=== PATIENT | male | born 1990 | race Caucasian/White ===

== ENCOUNTER 2021-04-19 12:48 | Emergency (ER) | payer OTHER, SELFPAY ==
[2021-04-19 12:49] VITALS: BP 160/87; PULSE 76; RESP 16; TEMP 36.7; O2SAT 98; BMI 30.2
--- NOTE | 2021-04-19 13:09 | CT_ITS ---
PROCEDURE: CT HEAD/BRAIN WO CON CLINICAL INDICATION: headache COMPARISON: CT HEADWO CT head/brain wo con from 01/23/2019 TECHNIQUE: Axial images obtained. All CT scans at the facility use one or more dose reduction, viz: automated exposure control, ma/kV adjustment per patient size (including targeted exams where dose is matched to indication, i.e. head), or iterative reconstruction technique. FINDINGS: No midline shift, mass effect, intracranial hemorrhage, hydrocephalus, or extra-axial fluid collection is evident. The calvarium has an unremarkable appearance. No mastoid effusion. No sinus air-fluid level. IMPRESSION: No acute intracranial finding Dictated by: Hector Reyes MD 04/19/2021 13:51 Hector Reyes MD in [place] 04/19/2021 13:51
--- NOTE | 2021-04-19 13:15 | HMH.EDGENADL ---
ED Disposition Clinical Impression: Rebound headache Disposition: Home, Self-Care Condition on Discharge: Good Instructions: DI for Migraine Prescriptions: Butalb/Acetaminophen/Caffeine [Fiorcet Tablet] 1 each PO BID #10 tablet Transmission Status: Received by [id number] Referrals: Tea Cheema MD [Primary Care Provider] - - Critical Care Critical Care Time: No Attestation: On 04/19/21, the high probability of a clinically significant, sudden or life threatening deterioration of the following system(s) required my full and direct attention, intervention and personal management. The time I documented below is in addition to time spent performing reported procedures but includes the following listed in this critical care notation. Medical Decision Making - Medical Records Medical records reviewed: Yes: I reviewed the patient's medical records. - Carlos Alberto Inquiry Pt receiving controlled substance: No Vital Signs: 04/19/21 12:49 Temperature 98.0 F Temperature Source Oral Pulse Rate [Left Radial] 76 Respiratory Rate 16 Blood Pressure [Left Arm] 160/87 H Blood Pressure Mean [Left Arm] 111 Blood Pressure Source [Left Arm] Automatic Cuff Blood Pressure Position [Left Arm] Sitting 02 Sat by Pulse Oximetry 98 Oxygen Delivery Method Room Air - Lab Data Lab Results 04/19/21 13:18: WBC 6.8, RBC 5.38, Hgb 16.3, Hct 47.9, MCV 89.0, MCH 30.2, MCHC 34.0, RDW 13.1, Plt Count 244, MPV 7.8, Neut % (Auto) 60.4, Lymph % (Auto) 26.9, Kane % (Auto) 8.5, Eos % (Auto) 2.7, Baso % (Auto) 1.5, Neut # (Auto) 4.1, Lymph # (Auto) 1.8, Kane # (Auto) 0.6, Eos # (Auto) 0.2, Baso # (Auto) 0.1 04/19/21 13:18: Sodium 141, Potassium 4.4, Chloride 106, Carbon Dioxide 26, Anion Gap 13.4, BUN 14, Creatinine 0.90, Estimated Creat Clear 183, Estimated GFR 100, Est GFR ( Amer) 121, Glucose 107 H, Calcium 9.4, Total Bilirubin 1.6 H, AST 38, ALT 63, Alkaline Phosphatase 70, Total Protein 8.0, Albumin 5.1 H, Globulin 2.9, Albumin/Globulin Ratio 1.8 Result diagrams: 04/19/21 13:18 04/19/21 13:18 Orders (Tests/Meds): ED MEDICATIONS Generic Name Dose Route Start Last Admin Trade Name Freq PRN Reason Stop Dose Admin Sodium Chloride 1,000 mls @ 999 mls/hr 04/19/21 13:15 04/19/21 13:22 Sod Chlor 0.9% 1000ml Bag IV 04/19/21 14:15 999 mls/hr .[id number] NINA Administration Discontinued Medications Generic Name Dose Route Start Last Admin Trade Name Freq PRN Reason Stop Dose Admin Ketorolac Tromethamine 30 mg 04/19/21 13:09 04/19/21 13:22 Ketorolac 30mg/Ml Vial IV 04/19/21 13:10 30 mg ONCE ONE Administration - CT Data CT Scan: Head Time Received: 13:[address] Reviewed: Yes: I have reviewed the patient's CT results, I have viewed the radiologist's interpretation Preliminary Findings: Normal/NAD - Reevaluation(s) Time: 13:57 Reevaluation #1: On reevaluation, the patient's headache is much improved. Repeat neurologic exam is normal. Patient does not have any neuro deficits. I did instruct him on his caffeine cessation. Patient be discharged with short course analgesics. Patient given strict return precautions. Verbalized understanding. Medical Decision Narrative: 30-year-old male presented to the emergency department with headache for the last 15 days. I do believe this is likely secondary to the patient's abrupt cessation in caffeine. The patient was drinking a large amount of soda prior to this issue. Patient has normal neurologic exam. Work-up initiated. General Adult HPI - General Chief complaint: Headache Stated complaint: headache Time Seen by Provider: 04/19/21 13:00 Mode of Arrival: Ambulatory Limitations: No Limitations Description of Symptoms (Recalled from ER Triage Doc. by RN): Pt reports headaches for approx 15 days. Pt reports has had some n/v and some dizziness. Denies vision changes. Pt denies any trauma. Reports has been taking ibuprofen - History of
[2021-04-19 13:28] LABS: Basophils # 0.1 K/mm3 (0-0.2); Basophils % 1.5 % (0.1-2.0); Eosinophils # 0.2 K/mm3 (0.0-0.4); Eosinophils % 2.7 % (0.1-12.0); Hematocrit 47.9 % (42.0-52.0); Hemoglobin 16.3 g/dL (14.1-18.0); Lymphocytes # 1.8 K/mm3 (0.7-4.5); Lymphocytes % 26.9 % (10-50); Mean Corpuscular Hemoglobin 30.2 pg (27.0-31.2); Mean Platelet Volume 7.8 fl (7.4-10.4); Monocytes # 0.6 K/mm3 (0.1-1.0); Monocytes % 8.5 % (1.7-9.3); Neutrophils # 4.1 K/mm3 (1.8-7.8); Neutrophils % 60.4 % (37.0-80.0); Platelet Count 244 K/mm3 (142-424); Red Blood Count 5.38 M/mm3 (4.60-6.20); Red Cell Distribution Width 13.1 % (11.5-17.5); White Blood Count 6.8 K/mm3 (4.8-10.8)
[2021-04-19 13:33] LABS: Chloride 106 mmol/L (98-107)
[2021-04-19 13:34] LABS: Potassium 4.4 mmoL/L (3.5-5.1); Sodium 141 mmol/L (136-145)
[2021-04-19 13:36] LABS: Alanine Aminotransferase 63 U/L (12-78); Aspartate Amino Transferase 38 U/L (17-59); Blood Urea Nitrogen 14 mg/dl (9-20); Creatinine Clearance Estimated 183 mL/min (50-200); Estimated Glomerular Filt Rate 100 ml/min (>60); GFR (African American) 121 ML/MIN (>60)
[2021-04-19 13:37] LABS: Albumin Level 5.1 g/dl (3.5-5.0); Albumin/Globulin Ratio 1.8 (1.1-1.8); Alkaline Phosphatase 70 U/L (38-126); Anion Gap 13.4 mEq/L (5-15); Bilirubin,Total 1.6 mg/dl (0.2-1.3); Calcium 9.4 mg/dl (8.4-10.2); Carbon Dioxide 26 mmol/L (22.0-30.0); Globulin 2.9 g/dL (1.3-3.2); Glucose 107 mg/dl (74-100)
[2021-04-19 14:36] VITALS: BP 127/73; PULSE 67; RESP 18; TEMP 36.6; O2SAT 99
== END 2021-04-19 14:31 | disposition home or self-care (01) ==
PROVIDERS: Emergency Provider Emergency Medicine; PCP Family Medicine
DX: G44.40 Drug-induced headache, not elsewhere classified, not intractable (principal); Z88.0 Allergy status to penicillin; F17.210 Nicotine dependence, cigarettes, uncomplicated
CPT/HCPCS: 70450; 80053; 85025; 96365; 99282

== ENCOUNTER 2023-12-17 00:20 | Emergency (ER) | payer OTHER, SELFPAY ==
[2023-12-17] VITALS (7 sets, daily range): BP systolic 122–163; BP diastolic 65–101; PULSE 56–77; RESP 16–19; TEMP 36.7–36.9; O2SAT 97–99; BMI 32.1
--- NOTE | 2023-12-17 00:24 | ED_ITS ---
Discharge Plan Disposition Patient Disposition: Home, Self-Care Prescriptions Prescriptions: No Action [id number] 1 EACH tablet 1 each PO BID Qty: 10 0RF Referrals Follow up/Referrals: Tea Cheema MD [Primary Care Provider] - See instructions Activity Restrictions/Add. Instructions Additional Instructions/Restrictions: Your CT scan showed some thickening in the stomach which may be related to acute infection, or related to chronic inflammation. Recommend following up with your primary care provider for further assessment. Recommend starting an eusw-xon-wmengvd antacid pill such as Pepcid or omeprazole daily. Clinical Impressions Clinical Impression: Abdominal pain Instructions Patient Instructions: DI for Acute Abdominal Pain Discharge ED Provider: Bryn German General Adult HPI General Chief complaint: Abdominal Pain Stated complaint: Stomach pain with nausea Time Seen by Provider: 12/17/23 00:24 History of Present Illness HPI narrative: 33-year-old male presents with 3 days of worsening abdominal symptoms. He repor ts nausea and dry heaving but no significant vomiting. He reports mild diarrhea. He reports abdominal pain is spasming, comes and goes, predominantly in the right upper quadrant but also is generalized. He reports no history of abdominal surgery he reports no prior past medical problems. He denies any recent fevers or chills. Of note patient reports that he drinks a lot of alcohol on the weekends. Reports he drinks approximately 12 beers and 5 shots per day on the weekends, does not drink during the weekdays. Related Data Previous Rx's Medication Instructions Recorded yfaiwamkhk-evvkkbmxbqgmq-yvjxnhlg 1 each PO BID #10 tabs 04/19/21 50 mg-325 mg-40 mg tablet Allergies Allergy/AdvReac Type Severity Reaction Status Date / Time Penicillins [PENICILLINS] Allergy Mild Verified 01/23/19 00:22 [facility] Disclaimer: The information contained in this section may have been updated after the patient was seen, as this information can be updated by other users. Social History Smoking Status: Current every day smoker alcohol intake: current substance use type: marijuana current occupational status: unemployed Travel in the last 8 weeks: None ROS Obtained: Yes All systems reviewed & no additional complaints except as documented Physical Exam General General appearance: alert and in no apparent distress Head Head exam: atraumatic and normocephalic Eye Eye exam: Present normal appearance, PERRL and EOMI ENT ENT exam: Present normal oropharynx and normal external ear exam Neck Neck exam: Present normal inspection and full ROM Chest Chest inspection: Present normal inspection and symmetric chest wall rise; Absent tenderness Respiratory Respiratory exam: Present normal lung sounds bilaterally; Absent respiratory distress Cardiovascular Cardiovascular exam: Present regular rate and normal rhythm Abdominal Exam Abdominal exam: Present soft; Absent distention, tenderness or guarding Extremities Exam Extremities exam: Present normal inspection; Absent edema or joint swelling Back Exam Back exam: Present normal inspection; Absent tenderness Neurological Exam Neurological exam: Present alert and oriented X3; Absent motor sensory deficit Psychiatric Psychiatric exam: Present normal affect and normal mood Skin Skin exam: Present warm, dry and normal color Lymphatic Lymphatic Findings: no adenopathy Medical Decision Making Medical Records Medical records reviewed: Yes I reviewed the patient's medical records. Carlos Alberto Inquiry Pt receiving controlled substance: No Carlos Alberto was queried for this patient: No Vital Signs: 12/17/23 00:22 12/17/23 00:28 12/17/23 00:30 Temperature 98.4 F Temperature Source Oral Pulse Rate 74 65 Pulse Rate [Right] 69 Respiratory Rate 16 Blood Pressure 160/101 H 163/88 H Blood Pressure [Right Arm] 130/79 Blood Pressure Mean [Right Arm] 96 Blood Pressure Source [Right Arm] Automatic Cuff Blood Pressure Position [Right Arm] Sitting 02 Sat by Pulse Oximetry 99 98 98 Oxygen Delivery Method Room Air 12/17/23 00:40 12/17/23 00:50 12/17/23 01:10 Temperature Temperature Source Pulse Rate 58 L 57 L 56 L Pulse Rate [Right] Respiratory Rate Blood Pressure 130/79 125/75 122/78 Blood Pressure [Right Arm] Blood Pressure Mean [Right Arm] Blood Pressure Source [Right Arm] Blood Pressure Position [Right Arm] 02 Sat by Pulse Oximetry 98 97 97 Oxygen Delivery Method Lab Data Lab results reviewed: Yes I reviewed the patient's lab results. Lab Results 12/17/23 00:35: WBC 7.7, RBC 5.62, Hgb 17.4, Hct 51.6, MCV 91.8, MCH 31.0, MCHC 33.7, RDW 13.2, Plt Count 229, MPV 8.4, Neut % (Auto) 59.1, Lymph % (Auto) 31.1, Potter % (Auto) 6.2, Eos % (Auto) 2.0, Baso % (Auto) 1.5, Neut # (Auto) 4.5, Lymph # (Auto) 2.4, Potter # (Auto) 0.5, Eos # (Auto) 0.2, Baso # (Auto) 0.1, Sodium 138, Potassium 3.7, Chloride 103, Carbon Dioxide 24, Anion Gap 14.7, BUN 13, Creatinine 0.90, Estimated Creat Clear 189, Estimated GFR 98, Est GFR ( Amer) 118, Glucose 103 H, Calcium 9.0, Total Bilirubin 1.1, AST 38, ALT 53, Alkaline Phosphatase 63, Total Protein 7.4, Albumin 4.5, Globulin 2.9, Albumin/Globulin Ratio 1.6, Lipase 51 12/17/23 00:35 12/17/23 00:35 Orders (Tests/Meds): ED MEDICATIONS Generic Name Dose Route Start Last Admin Trade Name Freq PRN Reason Stop Dose Admin Sodium Chloride 10 ml 12/17/23 01:02 12/17/23 01:03 Sodium Chloride 0.9% 10ml Syr (Rad Only) IV 01/16/24 01:01 10 ml NEEDED PRN Administration Maintain IV Site Discontinued Medications Generic Name Dose Route Start Last Admin Trade Name Freq PRN Reason Stop Dose Admin Acetaminophen 1,000 mg 12/17/23 00:31 12/17/23 00:54 Acetaminophen 500mg Tab PO 12/17/23 00:32 1,000 mg ONCE ONE Administration Belladonna Alkaloids 60 ml 12/17/23 00:31 12/17/23 00:54 Belladonna Alkaloids 60 Ml Ml PO 12/17/23 00:32 60 ml ONCE ONE Administration Iopamidol 75 ml 12/17/23 01:02 12/17/23 01:03 Iopamidol-370 (76%);100ml Bottle IV 12/17/23 01:03 75 ml ONCE ONE Administration Ketorolac Tromethamine 30 mg 12/17/23 00:31 12/17/23 00:54 Ketorolac 30mg/Ml Vial IV 12/17/23 00:32 30 mg ONCE ONE Administration Ondansetron HCl 4 mg 12/17/23 00:31 12/17/23 00:54 Ondansetron 4mg/2ml Vial IV 12/17/23 00:32 4 mg ONCE ONE Administration ORDERS Category Date Time Status CT abdomen pelvis w con Stat Cat Scan 12/17/23 00:31 Completed CBC w/Auto Diff [Complete Blood Count Auto Diff] Stat Lab 12/17/23 00:35 Completed CMP [Comprehensive Metabolic Panel] Stat Lab 12/17/23 00:35 Completed Lipase Stat Lab 12/17/23 00:35 Completed Medical Decision Narrative: 33-year-old male with history of binge drinking presents with 3 days of multiple abdominal complaints. History was obtained via conversation with patient. On a rrival, patient is [afebrile, hemodynamically stable, satting appropriately, alert, oriented x4, GCS 15], moving all extremities spontaneously. Full physical exam performed and significant for soft abdomen with minimal right upper quadrant tenderness. Differential includes but is not limited to gastroenteritis, cholecystitis, symptomatic cholelithiasis, pancreatitis, GERD,. Patient was given Tylenol, Toradol, Zofran GI cocktail for symptomatic management and correction of underlying abnormalities. Workup initiated including CBC CMP lipase CT abdomen pelvis with IV contrast. On re-evaluation, patient [remains afebrile, HD stable.] Laboratory workup independently interpreted by me and significant for negative lipase, normal LFTs, no leukocytosis. Imaging independently interpreted by me and significant for mildly thickened gastric antrum. And fluid-filled proximal small bowel, normal-appearing pancreas, gallbladder, no evidence of obstruction.. See radiology read for full review of final results. Given patient history, exam and workup, patient's presentation most likely repr esents gastritis, may be related to an acute GI infection, chronic alcohol use, H. pylori etc. No emergent pathology noted on workup. Patient discharged with instructions to begin taking antacid medications and follow up with PCP. Patient discharged in stable condition. Procedures Risk/Benefits of Procedure(s) Were Explained: Yes Critical Care Critical Care Time Critical Care Time: No
--- NOTE | 2023-12-17 00:27 | PC.NURSE ---
in room with US
--- NOTE | 2023-12-17 00:31 | CT_ITS ---
PROCEDURE INFORMATION: Exam: CT Abdomen And Pelvis With Contrast Exam date and time: 12/17/2023 12:58 AM Age: 33 years old Clinical indication: Abdominal pain; Additional info: Ruq/generalized abd pain TECHNIQUE: Imaging protocol: Computed tomography of the abdomen and pelvis with contrast. Radiation optimization: All CT scans at this facility use at least one of these dose optimization techniques: automated exposure control; mA and/or kV adjustment per patient size (includes targeted exams where dose is matched to clinical indication); or iterative reconstruction. Contrast material: ISOVUE; Contrast volume: 75 ml; Contrast route: IV; COMPARISON: 1. ABDPELW/O CT ABD PELVIS W/O CONTRAST 05/21/2017 6:58 AM 2. CR CXR CHEST(2 VIEWS-NOT PORTABLE) 05/21/2017 6:49 AM FINDINGS: Lungs: There are areas of subpleural reticulation throughout the visualized lungs which are nonspecific. Liver: There is possible hepatic steatosis, evaluation is limited secondary to contrast enhancement. Gallbladder and bile ducts: Normal. Pancreas: Normal. Spleen: There are multiple calcifications in the spleen most likely reflects small granulomas. Adrenal glands: The adrenal glands appear normal. Kidneys and ureters: There are no soft tissue renal masses or hydronephrosis. Stomach and bowel: There are scattered colonic diverticula without evidence for active diverticulitis. There is moderate edema of the gastric antrum with mucosal hyperenhancement, findings could reflect gastritis. Appendix: No evidence of appendicitis. Intraperitoneal space: Unremarkable. Vasculature: The abdominal aorta and its major branches appear normal without evidence of aneurysm or stenosis. There are pelvic phleboliths. Lymph nodes: No lymphadenopathy. Urinary bladder: There is moderate distention of the urinary bladder. Reproductive: Unremarkable. Bones/joints: The visualized osseous structures of the abdomen and pelvis appear normal for patient age. Soft tissues: Unremarkable. IMPRESSION: There is moderate edema of the gastric antrum with mucosal hyperenhancement, findings could reflect gastritis.
[2023-12-17 00:47] LABS: Basophils # 0.1 K/mm3 (0-0.2); Basophils % 1.5 % (0.1-2.0); Eosinophils # 0.2 K/mm3 (0.0-0.4); Hematocrit 51.6 % (42.0-52.0); Hemoglobin 17.4 g/dL (14.1-18.0); Lymphocytes # 2.4 K/mm3 (0.7-4.5); Lymphocytes % 31.1 % (10-50); Mean Corpuscular HGB Conc 33.7 g/dL (31.8-35.4); Mean Corpuscular Volume 91.8 fl (80-94); Mean Platelet Volume 8.4 fl (7.4-10.4); Monocytes # 0.5 K/mm3 (0.1-1.0); Monocytes % 6.2 % (1.7-9.3); Neutrophils # 4.5 K/mm3 (1.8-7.8); Neutrophils % 59.1 % (37.0-80.0); Platelet Count 229 K/mm3 (142-424); Red Blood Count 5.62 M/mm3 (4.60-6.20); Red Cell Distribution Width 13.2 % (11.5-17.5); White Blood Count 7.7 K/mm3 (4.8-10.8)
[2023-12-17 00:52] LABS: Alanine Aminotransferase 53 U/L (12-78); Albumin Level 4.5 g/dl (3.5-5.0); Albumin/Globulin Ratio 1.6 (1.1-1.8); Alkaline Phosphatase 63 U/L (38-126); Anion Gap 14.7 mEq/L (5-15); Aspartate Amino Transferase 38 U/L (17-59); Bilirubin,Total 1.1 mg/dl (0.2-1.3); Blood Urea Nitrogen 13 mg/dl (9-20); Carbon Dioxide 24 mmol/L (22.0-30.0); Chloride 103 mmol/L (98-107); Creatinine Clearance Estimated 189 mL/min (50-200); Estimated Glomerular Filt Rate 98 ml/min (>60); GFR (African American) 118 ML/MIN (>60); Globulin 2.9 g/dL (1.3-3.2); Glucose 103 mg/dl (74-100); Lipase 51 U/L (23-300); Potassium 3.7 mmoL/L (3.5-5.1); Sodium 138 mmol/L (136-145); Total Protein,Serum 7.4 g/dl (6.3-8.2)
[2023-12-17] MEDS: ONDANSETRON 4MG/2ML VIAL 4 MG IV (00:54)
[2023-12-17] MEDS: ACETAMINOPHEN 500MG TAB 1000 MG PO (00:54)
[2023-12-17] MEDS: KETOROLAC 30MG/ML VIAL 30 MG IV (00:54)
[2023-12-17] MEDS: BELLADONNA ALKALOIDS 60 ML ML PO (00:54)
[2023-12-17] MEDS: IOPAMIDOL-370 (76%);100ML BOTTLE 75 ML IV (01:03)
[2023-12-17] MEDS: SODIUM CHLORIDE 0.9% 10ML SYR (RAD ONLY) 10 ML IV (01:03)
--- NOTE | 2023-12-17 01:04 | PC.NURSE ---
rounded on patient, no needs voiced at this time.
== END 2023-12-17 01:29 | disposition home or self-care (01) ==
PROVIDERS: Emergency Provider Emergency Medicine; PCP Family Medicine
DX: R10.11 Right upper quadrant pain (principal); R10.84 Generalized abdominal pain; R11.0 Nausea; R19.7 Diarrhea, unspecified; F17.200 Nicotine dependence, unspecified, uncomplicated
CPT/HCPCS: 74177; 80053; 83690; 85025; 96374; 96375; 99285; J2405; Q9967

== ENCOUNTER 2024-04-11 00:18 | Emergency (ER) | payer OTHER, SELFPAY ==
[2024-04-11 00:19] VITALS: BP 128/80; PULSE 80; RESP 18; TEMP 37; O2SAT 95; BMI 32.1
[2024-04-11 00:30] VITALS: BMI 23.7
[2024-04-11] MEDS: ONDANSETRON 4MG ODT 4 MG SL (00:33)
--- NOTE | 2024-04-11 00:36 | XR_ITS ---
PROCEDURE INFORMATION: Exam: XR Right Foot Exam date and time: 04/11/2024 12:34 AM Age: 33 years old Clinical indication: Injury or trauma; Other: Cardiology Rn injury; Laceration; Foot; Right; Foreign body involvement not specified; Additional info: cork grinder vs R 1st metatarsal region TECHNIQUE: Imaging protocol: Radiologic exam of the right foot. Views: 3 or more views. COMPARISON: No relevant prior studies available. FINDINGS: Bones/joints: The foot is normally aligned. No acute osseous abnormality. No significant degenerative changes. Soft tissues: There is a soft tissue defect overlying the distal 1st metatarsal on the oblique view. IMPRESSION: 1. No acute osseous abnormality. 2. Soft tissue defect overlying the dorsal distal 1st metatarsal. No foreign body is evident.
[2024-04-11] MEDS: ACETAMINOPHEN 500MG TAB 1000 MG PO (00:47)
[2024-04-11] MEDS: LACTATED RINGERS 1000ML 1,000 ML 999 ML IV (00:47)
[2024-04-11] MEDS: KETOROLAC 30MG/ML VIAL 15 MG IV (00:48)
[2024-04-11] MEDS: CEFAZOLIN SODIUM 2 GM in 0.9 % SODIUM CHLORIDE 100 ML IV (00:50)
[2024-04-11 01:00] VITALS: BP 119/62; PULSE 54; O2SAT 98
--- NOTE | 2024-04-11 01:01 | HMH.EDGENADL ---
Discharge Plan Disposition Patient Disposition: Home, Self-Care Condition: Good Prescriptions Prescriptions: New cephalexin 500 mg capsule 500 mg PO TID 5 Days Qty: 15 0RF No Action srztujpohq-rcxrtlohcdehl-jjib 1 EACH tablet 1 each PO BID Qty: 10 0RF Referrals Follow up/Referrals: Tea Cheema MD [Primary Care Provider] - See instructions Virginia Vidal DPM [Staff Physician] - See instructions Activity Restrictions/Add. Instructions Additional Instructions/Restrictions: You were evaluated in the emergency department today. Please keep your wound clean and dry. Do not submerge under any water. Keep covered with antibiotic ointment and a dressing or Band-Aid when you wear shoes to help protect it and prevent infection. Monitor for any signs of infection, such as redness, warmth, or pus draining from the wound. Return to the emergency department right away should any of these develop. estimator and drafter supervisor the prescription for antibiotics and take the full course as prescribed to prevent infection. I provided you with information for Dr. Vidal with podiatry if you have any issues or concerns or wish to follow-up for wound check. Your sutures will need to be removed in approximately 8 to 10 days. Clinical Impressions Clinical Impression: Laceration of dorsum of right foot Instructions Patient Instructions: DI for Laceration Repair Discharge ED Provider: Juliet Mixon General Adult HPI General Chief complaint: Wound/Laceration Stated complaint: AO 2330 right foot laceration Time Seen by Provider: 04/11/24 00:21 Mode of Arrival: Ambulatory Source of Information: Patient Limitations: No Limitations Description of Symptoms (Recalled from ER Triage Doc. by RN): Patient reports he was working on his motorcycle at approximately midnight and using a convex grinder operator while wearing croc shoes and the convex grinder operator slipped hitting his left foot. Patient reports large amount of bleeding and arrives to triage with a towel taped tightly to foot. Patient is ambulatory. Reports that he feels hot, diaphoretic and nauseated. History of Present Illness HPI narrative: This patient is a 33-year-old male who denies significant past medical history presenting to the emergency department for evaluation with concern for right foot injury. 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 He states he had a large amount of bleeding, so he wrapped it in a towel prior to arrival. He is unsure when his last tetanus shot was. No other injuries or concerns noted. He was ambulatory into the emergency department. He also states that he started to feel very hot, nauseated, and lightheaded. Related Data Previous Rx's Medication Instructions Recorded upagdmtdbu-rwshjlffxabki-rllssjmw 1 each PO BID #10 tabs 04/19/21 50 mg-325 mg-40 mg tablet cephalexin 500 mg capsule 500 mg PO TID 5 days #15 caps 04/11/24 Allergies Allergy/AdvReac Type Severity Reaction Status Date / Time Penicillins [PENICILLINS] Allergy Mild Verified 01/23/19 00:22 [facility] Disclaimer: The information contained in this section may have been updated after the patient was seen, as this information can be updated by other users. Social History Smoking Status: Current every day smoker alcohol intake: current alcohol intake frequency: 3 or more drinks per day substance use type: marijuana current occupational status: unemployed Travel in the last 8 weeks: None ROS Obtained: Yes All systems reviewed & no additional complaints except as documented Physical Exam General General appearance: alert, in no apparent distress and anxious Comment: Diaphoretic, anxious appearing Head Head exam: atraumatic and normocephalic Eye Eye exam: Present normal appearance, PERRL and EOMI ENT ENT exam: Present normal exam, normal oropharynx, mucous membranes moist and normal external ear exam Neck Neck exam: Present normal inspection, full ROM and trachea midline; Absent tenderness Chest Chest inspection: Present normal inspection and symmetric chest wall rise; Absent tenderness Respiratory Respiratory exam: Present normal lung sounds bilaterally; Absent respiratory distress, wheezes, stridor or accessory muscle use Cardiovascular Cardiovascular exam: Present regular rate and normal rhythm Abdominal Exam Abdominal exam: Present soft; Absent distention, tenderness or guarding Extremities Exam Extremities exam: Present full ROM, normal capillary refill and other; Absent tenderness or edema Expanded Lower Extremity Exam Right: Top foot image: 1. 4 cm linear laceration. Wound is hemostatic. No gross contamination. Neurovascularly intact distally. Back Exam Back exam: Present normal inspection and full ROM; Absent tenderness Neurological Exam Neurological exam: Present alert, oriented X3, CN II-XII intact and normal gait; Absent motor sensory deficit Psychiatric Psychiatric exam: Present normal affect and normal mood Skin Skin exam: Present warm and diaphoresis Medical Decision Making Medical Records Medical records reviewed: Yes I reviewed the patient's medical records. Carlos Alberto Inquiry Pt receiving controlled substance: No Vital Signs: 04/11/24 00:19 Temperature 98.6 F Temperature Source Oral Pulse Rate [Left Radial] 80 Respiratory Rate 18 Blood Pressure [Right Arm] 128/80 Blood Pressure Mean [Right Arm] 96 Blood Pressure Source [Right Arm] Automatic Cuff Blood Pressure Position [Right Arm] Sitting 02 Sat by Pulse Oximetry 95 Oxygen Delivery Method Room Air Lab Data Lab results reviewed: Yes I reviewed the patient's lab results. Orders (Tests/Meds): ED MEDICATIONS Generic Name Dose Route Start Last Admin Trade Name Freq PRN Reason Stop Dose Admin Lactated Ringer's 1,000 mls @ 999 mls/hr 04/11/24 00:36 04/11/24 00:47 Lactated Ringer's 1000 Ml Bag IV 04/11/24 01:36 999 mls/hr .Q1H1M ONE Administration Discontinued Medications Generic Name Dose Route Start Last Admin Trade Name Freq PRN Reason Stop Dose Admin Acetaminophen 1,000 mg 04/11/24 00:36 04/11/24 00:47 Acetaminophen 500mg Tab PO 04/11/24 00:37 1,000 mg ONCE ONE Administration Bacitracin 1 gm 04/11/24 01:23 Bacitracin Zinc Oint 30gm Tube TP 04/11/24 01:24 ONCE ONE Cefazolin Sodium 2 gm 04/11/24 00:36 04/11/24 00:47 Cefazolin 2gm Vial IV 04/11/24 00:37 Not Given ONCE ONE Cefazolin Sodium 2 gm/ Sodium 100 mls @ 200 mls/hr 04/11/24 00:49 04/11/24 00:50 Chloride IV 04/11/24 01:18 200 mls/hr ONCE ONE Administration Ketorolac Tromethamine 15 mg 04/11/24 00:36 04/11/24 00:48 Ketorolac 30mg/Ml Vial IV 04/11/24 00:37 15 mg ONCE ONE Administration Lidocaine HCl 20 ml 04/11/24 01:07 Lidocaine 1% 20ml Mdv IJ 04/11/24 01:08 ONCE ONE Ondansetron HCl 4 mg 04/11/24 00:30 04/11/24 00:33 Ondansetron 4mg Odt SL 04/11/24 00:31 4 mg ONCE ONE Administration ORDERS Category Date Time Status Foot XR right minimum 3 views [XR foot RT min 3V] Stat Exams 04/11/24 00:36 Completed Medical Decision Narrative: In summary, this patient is a 33-year-old male presenting to the Emergency Department for evaluation of laceration to his right foot after hitting it with a sheet metal worker maintenance. Differential diagnoses considered include but are not limited to laceration, abrasion, open fracture, neurovascular injury, tendon injury. Ruling out the most morbid conditions drove assessment. It should be noted patient's history includes tobacco use which is not at goal therapy. This complicates all aspects of care by increasing patient's risk for morbidity. On exam, the patient is anxious appearing, diaphoretic, and pale. I feel that he likely is having this response to seeing his own blood/his injury. Workup included x-rays of the right foot. He was given a bolus of IV fluids as well as IV Toradol, oral Tylenol, and oral Zofran for symptomatic improvement. Given the wound, he was given Tdap booster as well as IV Ancef as well. I independently interpreted x-ray prior to the radiologist read and noted no obvious acute fracture or foreign body. Please see their read for final interpretation. With negative x-ray and reassuring exam with no neurovascular or tendon issues, I feel the patient is appropriate for simple laceration repair at bedside. He consented after risk versus benefit was explained. Laceration was repaired without difficulty. Please see procedure note for further documentation. He remained neurovascularly intact afterward. His wound was covered with bacitracin and then a sterile dressing. He was given instructions for wound care, instructions for close SUPPLY TECHNICIAN follow-up, and strict return precautions. He was given prescription for Keflex for antibiotic prophylaxis. Patient was discharged after all questions were answered. Procedures Risk/Benefits of Procedure(s) Were Explained: Yes Laceration Laceration 1: Site: foot Side (If applicable): right Size (cm): 4 Description: linear Depth: simple, single layer Local Anesthetic: lidocaine 1% Amount of anesthesia used (mL): 5 Pre-repair: wound explored, irrigated extensively and deep structures intact Skin layer closed with: nylon (Ethilon) Size (cm): 3-0 Number of sutures: 3 Technique: simple, interrupted Critical Care Critical Care Time Critical Care Time: No
[2024-04-11 01:30] VITALS: BP 132/60; PULSE 52; O2SAT 99
[2024-04-11] MEDS: BACITRACIN ZINC OINT 30GM TUBE TP (01:33)
[2024-04-11] MEDS: LIDOCAINE 1% 20ML MDV 20 ML IJ (01:33)
[2024-04-11 01:34] VITALS: BP 132/60; PULSE 56; RESP 18; TEMP 36.7; O2SAT 99
== END 2024-04-11 01:37 | disposition home or self-care (01) ==
PROVIDERS: Emergency Provider Emergency Medicine; PCP Family Medicine
DX: S91.311A Laceration without foreign body, right foot, initial encounter (principal); R11.0 Nausea; R42 Dizziness and giddiness; W31.1XXA Contact with metalworking machines, initial encounter
CPT/HCPCS: 12002; 73630; 96365; 96375; 99284; J7120

== ENCOUNTER 2024-04-27 03:59 | Emergency (ER) | payer OTHER, SELFPAY ==
[2024-04-27 04:02] VITALS: BP 142/72; PULSE 65; RESP 15; TEMP 36.8; O2SAT 97
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
--- NOTE | 2024-04-27 04:13 | XR_ITS ---
PROCEDURE INFORMATION: Exam: XR Right Foot Exam date and time: 04/27/2024 4:13 AM Age: 33 years old Clinical indication: Pain; Foot; Right; Additional info: Arch, medial foot pain TECHNIQUE: Imaging protocol: Radiologic exam of the right foot. Views: 3 or more views. COMPARISON: CR XR FOOT RT MIN 3V 04/11/2024 12:34 AM FINDINGS: Bones/joints: Os peroneus. Bipartite medial sesamoid bone. Soft tissues: Unremarkable. IMPRESSION: No acute or aggressive osseous abnormality.
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
[2024-04-27 04:24] VITALS: BMI 32.1
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
--- NOTE | 2024-04-27 04:29 | PC.NURSE ---
pt in xray
[2024-04-27 04:30] VITALS: BP 111/57; PULSE 60; RESP 21; O2SAT 97
[2024-04-27] MEDS: IBUPROFEN 600 MG TABLET PO (04:34)
[2024-04-27] MEDS: OXYCODONE 5MG IMMEDIATE RELEASE TABLET 5 MG PO (04:34)
[2024-04-27] MEDS: ACETAMINOPHEN 500MG TAB 1000 MG PO (04:34)
[2024-04-27 05:17] VITALS: BP 112/67; PULSE 62; RESP 14; TEMP 36.6
== END 2024-04-27 05:19 | disposition home or self-care (01) ==
PROVIDERS: Emergency Provider Emergency Medicine; PCP Family Medicine
DX: M79.604 Pain in right leg (principal); M79.671 Pain in right foot; M25.571 Pain in right ankle and joints of right foot; F17.210 Nicotine dependence, cigarettes, uncomplicated; V28.49XA Other motorcycle driver injured in noncollision transport accident in traffic accident, initial encounter; Y92.410 Unspecified street and highway as the place of occurrence of the external cause
CPT/HCPCS: 73552; 73562; 73590; 73610; 73630; 99284

== ENCOUNTER 2024-09-05 20:22 | Emergency (ER) | payer OTHER, SELFPAY ==
[2024-09-05 20:23] VITALS: BP 119/70; PULSE 63; RESP 20; TEMP 36.9; O2SAT 96; BMI 33.3
--- NOTE | 2024-09-05 20:35 | XR_ITS ---
PROCEDURE INFORMATION: Exam: XR Left Hand Exam date and time: 09/05/2024 8:34 PM Age: 34 years old Clinical indication: Injury or trauma; Laceration; Hand; Left; Additional info: Thumb laceration/injury TECHNIQUE: Imaging protocol: Radiologic exam of the left hand. Views: 3 or more views. COMPARISON: No relevant prior studies available. FINDINGS: Bones/joints: Normal. No acute fracture identified. No radiopaque foreign body visible. Old healed 5th metacarpal fracture. Soft tissues: Normal. IMPRESSION: No acute findings.
--- NOTE | 2024-09-05 20:38 | ED_ITS ---
Discharge Plan Disposition Patient Disposition: Home, Self-Care Prescriptions Prescriptions: New cefadroxil 500 mg capsule 500 mg PO BID 10 Days Qty: 20 0RF No Action yvjjwhucml-kdlobzlpkmgfu-yrgi 1 EACH tablet 1 each PO BID Qty: 10 0RF cephalexin 500 mg capsule 500 mg PO TID 5 Days Qty: 15 0RF Referrals Follow up/Referrals: Abran Lepe MD [Primary Care Provider] - See instructions Activity Restrictions/Add. Instructions Additional Instructions/Restrictions: Please note that [facility] should call within the next 24 hours to make an appointment with Dr. Dalton, who is the hand surgeon on-call today. They expect to see you in clinic on . Please take your antibiotics as prescribed. Return with any numbness or significant pain in your thumb. Clinical Impressions Clinical Impression: Laceration of thumb, Laceration of extensor tendon of left thumb at hand level Instructions Patient Instructions: DI for Skin Abscess Print Language Print Language: Citizen Of [place] Discharge ED Provider: Francois Navas General Adult HPI General Chief complaint: Skin/Abscess/Foreign Body Stated complaint: AO 09/05/241944 left hand injury Time Seen by Provider: 09/05/24 20:25 Mode of Arrival: Ambulatory Source of Information: Patient Limitations: No Limitations Description of Symptoms (Recalled from ER Triage Doc. by RN): pt was using a laboratory apparatus glass grinder when it kicked back and hit his left hand over his thumb. pt has a laceration over the top of the thumb. pt denies any other injuries History of Present Illness HPI narrative: 34-year-old presenting today with a laceration to the dorsal aspect of the left thumb after a laboratory apparatus glass grinder injury. Has difficulty with extension at this point. Tetanus is up-to-date. No injuries elsewhere. Related Data Previous Rx's ?Medication ?Instructions ?Recorded ygrotskqma-wlsaiqwzbnkps-xlaozokv 1 each PO BID #10 tabs 04/19/21 50 mg-325 mg-40 mg tablet cephalexin 500 mg capsule 500 mg PO TID 5 days #15 caps 04/11/24 cefadroxil 500 mg capsule 500 mg PO BID 10 days #20 caps 09/05/24 Allergies Allergy/AdvReac Type Severity Reaction Status Date / Time Penicillins [PENICILLINS] Allergy Mild Verified 01/23/19 00:22 [facility] Disclaimer: The information contained in this section may have been updated after the patient was seen, as this information can be updated by other users. Social History Smoking Status: Current every day smoker alcohol intake: current alcohol intake frequency: 3 or more drinks per day substance use type: marijuana current occupational status: unemployed Travel in the last 8 weeks: None Other Medical History Have you received the Flu Vaccine for this season: No Have you received the Pneumonia Vaccine: No ROS Obtained: Yes All systems reviewed & no additional complaints except as documented Physical Exam General General appearance: alert and in no apparent distress Respiratory Respiratory exam: Present normal lung sounds bilaterally Cardiovascular Cardiovascular exam: Present regular rate Extremities Exam Extremities exam: Present other (Gaping 4 cm laceration on the dorsal aspect the base of the thumb on the left hand with exposed tendon inability to extend at that region he is otherwise neurovascular intact with normal flexion function) Neurological Exam Neurological exam: Present alert and oriented X3 Medical Decision Making Medical Records Screening: Per USPSTF and CDC recommendations, given the prevalence of disease in our region, it is our hospital?s policy to screen for HIV and viral Hepatitis for all patients aged 18 and over and those with ongoing risk factors. Carlos Alberto Inquiry Pt receiving controlled substance: No Vital Signs: 09/05/24 20:23 09/05/24 21:08 Temperature 98.4 F Temperature Source Oral Pulse Rate 71 Pulse Rate [Right] 63 Respiratory Rate 20 Blood Pressure 122/70 Blood Pressure [Right Arm] 119/70 Blood Pressure Mean [Right Arm] 86 02 Sat by Pulse Oximetry 96 95 Oxygen Delivery Method Room Air Orders (Tests/Meds): ED MEDICATIONS Discontinued Medications Generic Name Dose Route Start Last Admin Trade Name Guanakito PRN Reason Stop Dose Admin Clindamycin HCl 450 mg 09/05/24 20:36 09/05/24 20:49 Clindamycin 150mg Capsule PO 09/05/24 20:37 450 mg ONCE ONE Administration ORDERS Category Date Time Status Hand XR left minimum 3 views [XR hand LT min 3V] Stat Exams 09/05/24 20:35 Completed Medical Decision Narrative: Patient was above history and physical we will get an x-ray to rule out any underlying bony injury. Will clean and extensively irrigate this wound and closed in extension with a splint he will need follow-up with a hand surgeon given the extensor tendon laceration. Wound was extensively irrigated and cleaned up I was able to directly visualize the tendon that was lacerated appear to be extensor pollicis longus. There were 2 lacerations which were noted on further evaluation of the wound both of which were closed loosely. Patient was then subsequently placed in a thumb spica after Xeroform was placed over the wound itself. I will speak with [facility] hand surgery to establish outpatient follow-up for this patient. X-ray was performed to person interpreted which shows no fractures or dislocations I spoke with Dr. Gross who is on-call for Dr. Dalton with hand surgery [facility]. They specifically recommended that I give the patient Duricef. This is a first generation cephalosporin patient does have a penicillin allergy however on chart review he has had Keflex in the past without any significant problems. I confirmed this with him and did in fact send his prescription in for cefadroxil/Duricef. It is likely that this patient will need surgical repair. He is aware of this. His phone number and his next phone number have been given to the transfer centers at the [facility]. Patient was discharged in stable condition with close follow-up establish with [facility] hand surgery Procedures Laceration Laceration 1: Site: hand Side (If applicable): left Size (cm): 4 Description: stellate and irregular Depth: simple, single layer and involves tendon Local Anesthetic: lidocaine 1% and with epi Pre-repair: wound explored, irrigated extensively and wound margins revised Skin layer closed with: nylon Size (cm): 3-0 Number of sutures: 6 Technique: simple, interrupted Laceration 2: Site: hand Side (If applicable): left Size (cm): 2 Description: linear Depth: simple, single layer Local Anesthetic: lidocaine 1% and with epi Pre-repair: irrigated extensively Skin layer closed with: nylon Size (cm): 3-0 Number of sutures: 2 Orthopedic Splinting/Casting Injury #1: Side: left Upper Extremity Injury Location: forearm, wrist and hand Upper Extremity Immobilizer: thumb spica Post Cast/Splinting Neuro Status: intact Post Cast/Splinting Vasc Status: intact Critical Care Critical Care Time Critical Care Time: No
[2024-09-05] MEDS: CLINDAMYCIN 150MG CAPSULE 450 MG PO (20:49)
[2024-09-05 21:08] VITALS: BP 122/70; PULSE 71; O2SAT 95
--- NOTE | 2024-09-05 21:45 | PC.NURSE ---
spoke with Daphney [facility] for call back from hand surgery for follow up
--- NOTE | 2024-09-05 22:13 | PC.NURSE ---
Dr. Navas on phone with Pending sale to [facility]
--- NOTE | 2024-09-05 22:19 | PC.NURSE ---
on the phone with
[2024-09-05 22:35] VITALS: BP 124/72; PULSE 67; RESP 16; TEMP 36.9; O2SAT 98
== END 2024-09-05 22:43 | disposition home or self-care (01) ==
PROVIDERS: Emergency Provider Student in an Organized Health Care Education/Training Program; PCP Family Medicine
DX: M79.642 Pain in left hand (principal); S66.222A Laceration of extensor muscle, fascia and tendon of left thumb at wrist and hand level, initial encounter; S61.012A Laceration without foreign body of left thumb without damage to nail, initial encounter; W29.8XXA Contact with other powered hand tools and household machinery, initial encounter; Y93.89 Activity, other specified; Y92.9 Unspecified place or not applicable
CPT/HCPCS: 12002; 73130; 99283

== ENCOUNTER 2024-09-06 02:49 | Emergency (ER) | payer OTHER, SELFPAY ==
[2024-09-06 02:50] VITALS: BP 166/91; PULSE 60; RESP 18; TEMP 36.6; O2SAT 96; BMI 31.2
[2024-09-06 03:00] VITALS: BP 136/91; PULSE 70
[2024-09-06] MEDS: OXYCODONE 5MG IMMEDIATE RELEASE TABLET 5 MG PO (03:23)
--- NOTE | 2024-09-06 03:23 | ED_ITS ---
Discharge Plan Disposition Patient Disposition: Home, Self-Care Condition: Good Prescriptions Prescriptions: New oxycodone 5 mg tablet 5 mg PO Q8H PRN (Reason: pain) Qty: 12 0RF No Action cefadroxil 500 mg capsule 500 mg PO BID 10 Days Qty: 20 0RF [id number]-zgokqhjtesbja-kntb 1 EACH tablet 1 each PO BID Qty: 10 0RF cephalexin 500 mg capsule 500 mg PO TID 5 Days Qty: 15 0RF Referrals Follow up/Referrals: Provider,Referral, MD [Primary Care Provider] - See instructions Activity Restrictions/Add. Instructions Additional Instructions/Restrictions: Please keep hand elevated is much as possible. Please take Tylenol ibuprofen and oxycodone as needed for pain. Please follow-up with previously scheduled hand surgery appointment. Clinical Impressions Clinical Impression: Injury of extensor tendon of hand Qualifiers: Encounter type: subsequent encounter Laterality: left Qualified Code(s): S66.9 02D - Unspecified injury of unspecified muscle, fascia and tendon at wrist and hand level, left hand, subsequent encounter Print Language Print Language: [place] Discharge ED Provider: Bryn German General Adult HPI General Chief complaint: PAIN Stated complaint: L hand pain Time Seen by Provider: 09/06/24 02:50 Mode of Arrival: Ambulatory Source of Information: Patient Limitations: No Limitations Description of Symptoms (Recalled from ER Triage Doc. by RN): patient was seen earlier today for an injured hand, states pain has gotten worse and she can no longer stand it. says pain is 9/10 History of Present Illness HPI narrative: 34-year-old male presents with worsening pain in his left hand. He was seen here earlier today for a extensor tendon injury of the thumb. He has been taking Tylenol and ibuprofen at home but his pain is worsening. He reports it was so bad that he could not go to sleep. He reports that he loosen up his kyaw wrap little bit but it did not seem to help. He denies any new trauma. See original note for full details. Related Data Previous Rx's ?Medication ?Instructions ?Recorded [id number]-qjjfhmctgyhic-xzvqgywf 1 each PO BID #10 tabs 04/19/21 50 mg-325 mg-40 mg tablet cephalexin 500 mg capsule 500 mg PO TID 5 days #15 caps 04/11/24 cefadroxil 500 mg capsule 500 mg PO BID 10 days #20 caps 09/05/24 oxycodone 5 mg tablet 5 mg PO Q8H PRN pain #12 tabs 09/06/24 Allergies Allergy/AdvReac Type Severity Reaction Status Date / Time Penicillins [PENICILLINS] Allergy Mild Verified 01/23/19 00:[address] [facility] Disclaimer: The information contained in this section may have been updated after the patient was seen, as this information can be updated by other users. Social History Smoking Status: Current every day smoker alcohol intake: current alcohol intake frequency: 3 or more drinks per day substance use type: marijuana current occupational status: unemployed Travel in the last 8 weeks: None Other Medical History Have you received the Flu Vaccine for this season: No Have you received the Pneumonia Vaccine: No ROS Obtained: Yes All systems reviewed & no additional complaints except as documented Physical Exam General General appearance: alert and in no apparent distress Head Head exam: atraumatic and normocephalic Eye Eye exam: Present normal appearance, PERRL and EOMI ENT ENT exam: Present normal oropharynx and normal external ear exam Neck Neck exam: Present normal inspection and full ROM Chest Chest inspection: Present normal inspection and symmetric chest wall rise; Absent tenderness Respiratory Respiratory exam: Present normal lung sounds bilaterally; Absent respiratory distress Cardiovascular Cardiovascular exam: Present regular rate and normal rhythm Abdominal Exam Abdominal exam: Present soft; Absent distention, tenderness or guarding Extremities Exam Extremities exam: Present other (Left hand in thumb spica splint, fingers a bit swollen, pink, good capillary refill. We did not remove the sterile dressing that was applied.) Back Exam Back exam: Present normal inspection; Absent tenderness Neurological Exam Neurological exam: Present alert and oriented X3; Absent motor sensory deficit Psychiatric Psychiatric exam: Present normal affect and normal mood Skin Skin exam: Present warm, dry and normal color Lymphatic Lymphatic Findings: no adenopathy Medical Decision Making Medical Records Medical records reviewed: Yes I reviewed the patient's medical records. Screening: Per USPSTF and CDC recommendations, given the prevalence of disease in our region, it is our hospital?s policy to screen for HIV and viral Hepatitis for all patients aged 18 and over and those with ongoing risk factors. Carlos Alberto Inquiry Pt receiving controlled substance: No Carlos Alberto was queried for this patient: No Vital Signs: 09/06/24 02:50 09/06/24 03:00 09/06/24 04:07 Temperature 97.9 F 97.9 F Temperature Source Oral Oral Pulse Rate 70 72 Pulse Rate [Right Radial] 60 Respiratory Rate 18 18 Blood Pressure 136/91 H 118/72 Blood Pressure [Right Arm] 166/91 H Blood Pressure Mean 114 Blood Pressure Mean [Right Arm] 116 Blood Pressure Source Automatic Cuff Blood Pressure Position Supine 02 Sat by Pulse Oximetry 96 Oxygen Delivery Method Room Air Room Air Lab Data Lab results reviewed: Yes I reviewed the patient's lab results. Orders (Tests/Meds): ED MEDICATIONS Discontinued Medications Generic Name Dose Route Start Last Admin Trade Name Freq PRN Reason Stop Dose Admin Oxycodone HCl 5 mg 09/06/24 03:19 09/06/24 03:23 Oxycodone 5mg Immediate Release Tablet PO 09/06/24 03:20 5 mg ONCE ONE Administration Medical Decision Narrative: 34-year-old male presents for worsening pain in his left hand after he had a extensor tendon laceration earlier today for which she was already seen, see previous note for full details.. History was obtained via interactive discussion with patient, chart review. On arrival, patient is [afebrile, hemodynamically stable, satting appropriately, alert, oriented x4, GCS 15], moving all extremities spontaneously. Full physical exam performed and significant for no focal neurologic deficits, patient continues to have good capillary refill. Fingers are diffusely swollen. Differential includes but is not limited to compartment syndrome, repeat injury, worsening swelling secondary to initial injury, infection. Patient was given 5 of oxycodone for symptomatic management and correction of underlying abnormalities. The patient's thumb spica splint and Kyaw wrap were removed to see if that improved his symptoms. On re-evaluation, patient [remains afebrile, HD stable.] Patient reports improvement in his pain after interventions. It is possible that the Kyaw wrap was a little bit too tight, but I think it is more likely that the swelling from the injury is what caused his increase in pain. I encouraged him to keep the hand elevated is much as possible to reduce the swelling. I also prescribed him oxycodone for pain control given it was not controlled with kmeg-cga-afcfyhm analgesics and he required repeat ER visit. Procedures Risk/Benefits of Procedure(s) Were Explained: Yes Critical Care Critical Care Time Critical Care Time: No
[2024-09-06 04:07] VITALS: BP 118/72; PULSE 72; RESP 18; TEMP 36.6; O2SAT 100
== END 2024-09-06 04:11 | disposition home or self-care (01) ==
PROVIDERS: Emergency Provider Emergency Medicine
DX: S66.902D Unspecified injury of unspecified muscle, fascia and tendon at wrist and hand level, left hand, subsequent encounter; M79.642 Pain in left hand; W29.8XXD Contact with other powered hand tools and household machinery, subsequent encounter
CPT/HCPCS: 99282

== ENCOUNTER 2025-08-10 04:19 | Emergency (ER) | payer OTHER, SELFPAY ==
--- OUTSIDE RECORDS SUMMARY | 2024-06-11 07:00 | XMS_ITS ---
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 Name Role Phone Abran Lepe Primary Care Provider Allergies Allergen (clinical drug ingredient) Drug/Non Drug Allergy documented on EMR Reaction Allergy Type Onset Date Status amoxicillin / clavulanate Augmentin Rash Drug Allergy Active Results Component Value Reference Range Notes CBC Fingerstick (in house) Reviewed date:06/11/2024 04:37:21 PM Interpretation: Performing Lab: Notes/Report: wbc 9.7 3.5 - 10 lym 25.5% 15 - 50 mid 5.4% 2 - 15 gran 69.1% 35 - 80 rbc 5.52 3.5 - 5.5 hgb 16.5 11.5 - 16.5 hct 50.1 35 - 55 mcv 90.8 75 - 100 mch 29.9 25 - 35 mchc 32.9 31 - 38 plat 239 100 - 400 P-Basic Metabolic Panel (BMP ) Reviewed date:06/13/2024 02:20:43 PM Interpretation:Normal Performing Lab: Notes/Report: CLIA: [id number] Pito Romo MD, [employer] [facility] , [address], [place] [address] Test performed by [employer], [facility] Sodium 140 135-145 mmol/L Potassium 4.6 3.5-5.3 mmol/L Chloride 105 97-108 mmol/L CO2 19 22-32 mmol/L Glucose 84 65-99 mg/dL BUN 12 6-20 mg/dL Creatinine 0.84 0.70-1.30 mg/dL Calcium 9.3 8.6-10.4 mg/dL eGFR by Creatinine 118 >59 mL/min/1.73m2 P-Magnesium Reviewed date:06/13/2024 02:20:43 PM Interpretation:Normal Performing Lab: Notes/Report: Test performed by [employer] [address] [place] [address] , [address], [place] [address] Pito Romo MD, [employer] CLIA: [id number] Magnesium 2.0 1.6-2.4 mg/dL P-Phosphorus Reviewed date:06/13/2024 02:20:43 PM Interpretation:Normal Performing Lab: Notes/Report: [facility] [address] , [address], [place] [address] Pito Romo MD, [employer] CLIA: [id number] Phosphorus 3.7 2.5-4.5 mg/dL P-TSH reflex to FT4 Reviewed date:06/13/2024 02:20:43 PM Interpretation:Normal Performing Lab: Notes/Report: Test performed by [employer] [address] [place] [address] , [address], [place] [address] Pito Romo MD, [employer] CLIA: [id number] TSH reflex to FT4 1.09 0.43-5.25 mU/L REASON FOR VISIT possible bacterial infection Medications Medication SIG (Take, Route, Fr equency, Duration) Notes Start Date End Date Status Zithromax Z-Johan 250 MG as directed Orall y once daily; Duration: 5 day(s) 06/11/2024 Active Vital Signs Blood pressure systolic 120 mm Hg 06/11/20 24 Blood pressure diastolic 76 mm Hg 024 Heart Rate 59 /min 06/11/2024 Height 73 in 06/11/2024 Weight 252.2 lbs 06/11/2024 BMI 33.27 kg/m2 06/11/2024 Encounters Encounter Location Date Provider Diagnosis [facility] [address] [facility] [address] [place] [id number] 06/11/2024 Abran Lepe Dizziness, nonspecif ic R42 and Acute URI J06.9 Assessments Encounter Date Diagnosis (ICD Code) Assessment Notes Treatment Notes Treatment Clinical Notes Section Notes 06/11/2024 Dizziness, nonspecific (ICD-10 - R42) 06/11/2024 Acute URI (ICD-10 - J06.9) Plan Of Treatment Medication Medication Name Sig Start Date Stop Date Notes Zithromax Z-Johan 250 MG as directed Orall y once daily; Duration: 5 day(s) 06/11/2024 Next Appt Details Follow Up: via phone to repo rt test results, Reason: Progress Notes * MARCOS ROYALOB: 1 (35 yo M)Acc No.[id number]:06/11/2024 Progress Notes Patient: SANNA AGUILAR Provider: Bipin Lepe M.D. :1990 A ge:34 Y S ex:Male Date:06/11/2024 Address:[address] [place], [id number] Subjective: * Chief Complaints: * 1 . Possible bacterial infection. * HPI: N farhad: 34 year old male presents with c/o pain n ape of the neck and radiates up into his head. Pt states this started about a week ago. Pt states the pain is worse at times and yesterday he felt a bit light headed. Pt denies any fever. * ROS: C ARDIOLOGY: no D izziness. n o C hest pain. D ERMATOLOGY: no R les. n o H teresa. G ASTROENTEROLOGY: no N ausea. n o V omiting. * Medical History: V iral Hepatitis B at age 20. * Hospitalization/Major Diagno stic Procedure: L T Hand Laceration 03/2006, Shoulder Pain- [facility] ER 11/02/2013, Gastritis- [place] ER 2018. * Family History: F ather: alive 72 yrs, diagnosed with Cancer. M other: alive 69 yrs, diagnosed with Diabetes, Hypertension. 1 brother(s) - healthy. . * Social History: C URRENT TOBACCO USE S moking Status: P atient does smoke, p acks per day: 2 ,?number of cigarettes per day: 4 0, S justina age of: 1 4, S moking preference: cigarettes. C affeine: yes, frequency:pop and tea, qd. Home smoke detector use: yes. Marital Status: Single. Alcohol: no. Recreational drug use: yes, Current daily use marijuana. Alcohol: Yes, Type: , Frequency: ,Years: , Determination:, occasional. Sexually active: yes. * Medications: D iscontinued Famotidine 40 MG Tablet 1 tablet at bedtime Orally Once a day , Medication List reviewed and reconciled with the patient * Allergies: A ugmentin: Rash. Objective: * Vitals: W t:252.2, Temp:97.7, BP:120/76, HR:59, Nurse:KORTNEY, Ht: 73, BMI:33.27. * Examination: E NT/Respiratory: General Appearance: N AD. E yes: P ERRLA, sclera clear. E ars: a uditory canals normal bilaterally, TM's WNL. N ose : n ormal, no lesions, nares patent. O ral cavity : erythema without exudate on pharynx. N farhad : n o cervical lymphadenopathy. H eart : R RR, normal S1 S2. L ungs: c lear to auscultation bilaterally. Assessment: * Assessment: 1. D izziness, nonspecific - R42 (Primary) 2 . A cute URI - J06.9 ? Plan: * Treatment: Value Reference Range B UN 12 6-20 - mg/dL * C alcium 9.3 8.6-10.4 - mg/dL * C hloride 105 97-108 - mmol/L * C O2 19 L 22-32 - mmol/L * C reatinine 0.84 0.70-1.30 - mg/dL * G lucose 84 65-99 - mg/dL * P otassium 4.6 3.5-5.3 - mmol/L * S odium 140 135-145 - mmol/L * e GFR by Creatinine 118 >59 - mL/min/1.73m2 * Abran Lepe 06/13/2024 2: 18:09 PM > Labs normal sent to to inform. Elvia Lau 06/13/2024 2:20:30 PM >Patient informed of normal results. ?LAB: P-Magnesium (Collection Date & Time - 06/11/2024 10:38 AM)?Normal* Value Reference Range M agnesium 2.0 1.6-2.4 - mg/dL * Abran Lepe Erin 06/13/2024 2: 18:09 PM > Labs normal sent to to inform. Elvia Lau 06/13/2024 2:20:30 PM >Patient informed of normal results. ?LAB: P-Phosphorus (Collection Date & Time - 06/11/2024 10:38 AM)?Normal* Value Reference Range P hosphorus 3.7 2.5-4.5 - mg/dL * Abran Lepe Erin 06/13/2024 2: 18:09 PM > Labs normal sent to to inform. Elvia Lau 06/13/2024 2:20:30 PM >Patient informed of normal results. ?LAB: P-TSH reflex to FT4 (Collection Date & Time - 06/11/2024 10:38 AM)? Normal* Value Reference Range T SH reflex to FT4 1.09 0.43-5.25 - mU/L * RoberthAbran Khan 06/13/2024 2: 18:09 PM > Labs normal sent to to inform. Elvia Lau 06/13/2024 2:20:30 PM >Patient informed of normal results. 2.?Acute URI? Start Zithromax Z-Johan Tablet, 250 MG, as directed, Orally, once daily, 5 day(s), 6 tabs, Refills 0. ?LAB: CBC Fingerstick (in house) (Collection Date & Time - 06/11/2024)* Value Reference Range w bc 9.7 3.5 - 10 * l ym 25.5% 15 - 50 * m id 5.4% 2 - 15 * g ran 69.1% 35 - 80 * r bc 5.52 3.5 - 5.5 * h gb 16.5 11.5 - 16.5 * h ct 50.1 35 - 55 * m cv 90.8 75 - 100 * m ch 29.9 25 - 35 * m chc 32.9 31 - 38 * p lat 239 100 - 400 * Elvia Lau 06/11/2024 10:5 8:30 AM > , Provider reviewed results while patient in office.Abran Lepe 06/11/2024 4:37:18 PM > * Procedure Codes: 8 5025 CBC WITH AUTO DIFF, 67168 VENIPUNCT, ROUTINE* * Follow Up: v ia phone to report test results * Images: Billing Information: * Visit Code: 50404 Office Visit, Est Pt., Level 4. * Procedure Codes: 03570 CBC WITH AUTO DIFF. 06874 VENIPUNCT, ROUTINE*. * Electronic signature of Mariel Lepe MD on 08/10/2025 at 04:39 AM EDT Sign off status: Pending * Provider: Bipin Lepe M.D. Date: 0 06/11/2024 Generated for Juan mckeon/Randy/Mahendra on: 04:39 AM EDT History and Physical Notes * HPI (History of Present Illness) Category Sub-Category Detail Notes Category Not es Neck pain nape of the neck and radiates up into his head. Pt states this started about a week ago. Pt states the pain is worse at times and yesterday he felt a bit light headed. Pt denies any fever Examination Category Sub-Category Detail Notes Category Not es ENT/Respiratory Oral cavity : erythema without exudate on pharynx Ears: auditory canals norm al bilaterally, TM's WNL Neck : no cervical lymphade nopathy Heart : RRR, normal S1 S2 Lungs: clear to auscultatio n bilaterally General Appearance: NAD Nose : normal, no lesions, nares patent Eyes: PERRLA, sclera clear
--- OUTSIDE RECORDS SUMMARY | 2024-08-15 11:45 | XMS_ITS ---
Author Organization [facility] Address [address] [place] [id number] Care Team Providers Care Synoptic Meteorologist Name Role Phone Roberth Abran Primary Care Provider [phone] Pily Cherry Unavailable [phone] Allergies Allergen (clinical drug ingredient) Drug/Non Drug Allergy documented on EMR Reaction Allergy Type Onset Date Status amoxicillin / clavulanate Augmentin Rash Drug Allergy Active Results Component Value Reference Range Notes CBC Fingerstick (in house) Reviewed date:08/16/2024 09:21:26 AM Interpretation: Performing Lab: Notes/Report: wbc 5.1 3.5 - 10 lym 31.7 15 - 50 mid 6.1 2 - 15 gran 62.2 35 - 80 rbc 5.69 3.5 - 5.5 hgb 17.2 11.5 - 16.5 hct 52.2 35 - 55 mcv 91.8 75 - 100 mch 30.3 25 - 35 mchc 33.0 31 - 38 plat 154 100 - 400 REASON FOR VISIT fever muscle aches Vital Signs Blood pressure systolic 126 mm Hg 08/15/20 24 Blood pressure diastolic 68 mm Hg 024 Heart Rate 70 /min 08/15/2024 Height 73 in 08/15/2024 Weight 254.4 lbs 08/15/2024 BMI 33.56 kg/m2 08/15/2024 Encounters Encounter Location Date Provider Diagnosis Brian [address] [place] [phone] 08/15/2024 Pily Cherry URI (upper respirato ry infection) J06.9 Assessments Encounter Date Diagnosis (ICD Code) Assessment Notes Treatment Notes Treatment Clinical Notes Section Notes 08/15/2024 URI (upper respiratory infection) (ICD-10 - J06.9) fluids, rest, supportive measures for fever/symptom relief, gargles q2h while awake with hot salt water; declines FLU and COVID TESTS Plan Of Treatment Treatment Notes Assessment Notes URI (upper respiratory infection) fluids , rest, supportive measures for fever/symptom relief, gargles q2h while awake with hot salt water; declines FLU and COVID TESTS Next Appt Details Follow Up: prn, Reason: Progress Notes * MARCOS ROYALOB: 1 (35 yo M)Acc No.[id number]:08/15/2024 Progress Notes Patient: SANNA AGUILAR Provider: ROBIN Vega :1990 A ge:34 Y S ex:Male Date:08/15/2024 Address:[address] [place] [address] [id number] Pcp:Abran Lepe Subjective: * Chief Complaints: * 1 . Fever muscle aches. * HPI: E NT/respiratory: 34 year old male presents with c/o sore throat. c/o cough. c/o Fever P t is hre today with c/o having fevers with chills. c/o Chest Pain.? c/o Short of Breath. c/o headache. c/o chest congestion. c/o body aches P t sts he has not checked to see if he has had any fevers, but sts he has felt cold. Pt sts he has had body aches since Thursday. Pt sts he has taken Ibuprofen and sts he feels fine when taking it, but after a while he feels miserable again. c/o ear stopped up P t sts he feels as if there is liquid in his ears sometimes. sick x 4 days;eating and drinkijng OK; sleeping OK. * ROS: C ARDIOLOGY: no D izziness. n o C hest pain. D ERMATOLOGY: no R les. n o H teresa. G ASTROENTEROLOGY: no N ausea. n o V omiting. * Medical History: V iral Hepatitis B at age 20. * Hospitalization/Major Diagno stic Procedure: L T Hand Laceration 03/2006, Shoulder Pain- [facility] ER 11/02/2013, Gastritis- [place] ER 2018. * Family History: F ather: [...] Determination:, occasional. Sexually active: yes. * Medications: N one * Allergies: A ugmentin: Rash. Objective: * Vitals: W t:254.4, Temp:97.9, BP:126/68, HR:70, O2 Sat:98% on RA, Nurse:LAUREL, Ht: 73, BMI:33.56. * Examination: E NT/Respiratory: General Appearance: well nourished and hydrated, NAD, alert. E yes: sclera and conjunctiva clear. E ars: auditory canals normal bilaterally, tympanic membranes normal bilaterally. N ose : nares patent. O ral cavity : OP erythema. N farhad : supple, no cervical lymphadenopathy. H eart : RRR. L ungs: CTAB A&P. Assessment: * Assessment: 1. U RI (upper respiratory infection) - J06.9 (Primary) Plan: * Treatment: Value Reference Range w bc 5.1 3.5 - 10 * l ym 31.7 15 - 50 * m id 6.1 2 - 15 * g ran 62.2 35 - 80 * r bc 5.69 3.5 - 5.5 * h gb 17.2 11.5 - 16.5 * h ct 52.2 35 - 55 * m cv 91.8 75 - 100 * m ch 30.3 25 - 35 * m chc 33.0 31 - 38 * p lat 154 100 - 400 * Erum Hoyt 08/15/2024 4:20: 01 PM > , Provider reviewed results while patient in office. Notes: fluids, rest, supportive measures for fever/symptom relief, gargles q2h while awake with hotsalt water; declines FLU and COVID TESTS?? * Procedure Codes: 9 4760 [place], [address] CAPILLARY BLOOD DRAW, 99427 CBC WITH AUTO DIFF * Follow Up: p rn * Images: Billing Information: * Visit Code: 95636 Office Visit, Est Pt., Level 3. * Procedure Codes: [address] [place]. [address] CAPILLARY BLOOD DRAW. 58195 CBC WITH AUTO DIFF. * Electronic signature of Kristine Cherry APRN on 08/10/2025 at 04:39 AM EDT Sign off status: Pending * Provider: ROBIN Vega Date: 1 Generated for Juan mckeon/Randy/Mahendra on: 04:39 AM EDT History and Physical Notes * HPI (History of Present Illness) Category Sub-Category Detail Notes Category Not es ENT/respiratory sore throat sick x 4 day s;eating and drinkijng OK; sleeping OK Short of Breath Chest Pain cough Fever Pt is hre today with c/o having fevers with chills headache chest congestion body aches Pt sts he has not ch ecked to see if he has had any fevers, but sts he has felt cold. Pt sts he has had body aches since Thursday. Pt sts he has taken Ibuprofen and sts he feels fine when taking it, but after a while he feels miserable again ear stopped up Pt sts he feels as i f there is liquid in his ears sometimes Examination Category Sub-Category Detail Notes Category Not es ENT/Respiratory Oral cavity : OP erythema Ears: auditory canals norm al bilaterally, tympanic membranes normal bilaterally Neck : supple, no cervical lymphadenopathy Heart : RRR Lungs: CTAB A&P General Appearance: well nourished and h ydrated, NAD, alert Nose : nares patent Eyes: sclera and conjuncti va clear
--- OUTSIDE RECORDS SUMMARY | 2024-09-09 09:30 | XMS_ITS ---
Author Organization [facility] Address [address] [facility] [address] [place] [id number] Care Team Providers Care Iron Erector Name Role Phone Abran Lepe Primary Care Provider Allergies Allergen (clinical drug ingredient) Drug/Non Drug Allergy documented on EMR Reaction Allergy Type Onset Date Status amoxicillin / clavulanate Augmentin Rash Drug Allergy Active REASON FOR VISIT follow up on blood pressure running high Vital Signs Blood pressure systolic 132 mm Hg 09/09/20 24 Blood pressure diastolic 80 mm Hg 024 Heart Rate 84 /min 09/09/2024 Height 73 in 09/09/2024 Weight 250.2 lbs 09/09/2024 BMI 33.01 kg/m2 09/09/2024 Encounters Encounter Location Date Provider Diagnosis Brian [address]10 [facility] [address] [place] [phone] 09/09/2024 Abran Lepe Elevated blood pressure reading R03.0 Assessments Encounter Date Diagnosis (ICD Code) Assessment Notes Treatment Notes Treatment Clinical Notes Section Notes 09/09/2024 Elevated blood pressure reading (ICD-10 - R03.0) Blood pressure journal Plan Of Treatment Treatment Notes Assessment Notes Elevated blood pressure reading Blood pr essure journal Next Appt Details Follow Up: 3 or 4 Weeks, [place] son: Progress Notes * MARCOS ROYALOB: 1 (35 yo M)Acc No.[id number]:09/09/2024 Progress Notes Patient: SANNA AGUILAR Provider: Bipin Lepe M.D. :1990 A ge:34 Y S ex:Male Date:09/09/2024 Address:[address] [id number] Subjective: * Chief Complaints: * 1 . Follow up on blood pressure running high. * HPI: C ardiology: 34 year old male presents with c/o Blood Pressure Elevated P t states he was at er yesterday for cutting his hand. Pt states he was told that his bp was extremely high and was advised to see PCP. Pt states he did buy a bp machine and when he checked at home it was 162/90. * ROS: D ERMATOLOGY: no R les. n o H teresa. G ASTROENTEROLOGY: no N ausea. n o V omiting. U ROLOGY: no D ifficulty urinating. n o B lood in urine. * Medical History: V iral Hepatitis B at age 20. * Surgical History: D enies Past Surgical History. * Hospitalization/Major Diagno stic Procedure: L T Hand Laceration 03/2006, Shoulder Pain- [facility] ER 11/02/2013, Gastritis- [place] ER 2017. * Family History: F ather: alive 72 [...] A ugmentin: Rash. Objective: * Vitals: W t:250.2, Temp:97.8, BP:132/80, HR:84, Nurse:sriram, Ht: 73, BMI:33.01. * Examination: C ardiology: General Appearance: p leasant, NAD. H eart sounds: R RR, normal S1, S2. M urmur, click , gallop: n one. L ungs: c lear, no rales or wheezes. E xtremities: n o leg edema, left hand in a thumb spica splint. Assessment: * Assessment: 1. E levated blood pressure reading - R03.0 (Primary) Plan: * Treatment: * Follow Up: 3 or 4 Weeks * Images: Billing Information: * Visit Code: 57082 Office Visit, Est Pt., Level 3. * Procedure Codes: * Electronic signature of Mariel Lepe MD on 08/10/2025 at 04:38 AM EDT Sign off status: Pending * Provider: Bipin Lepe M.D. Date: 11/09/2023 Generated for Juan mckeon/Randy/Mahendra on: 04:38 AM EDT History and Physical Notes * HPI (History of Present Illness) Category Sub-Category Detail Notes Category Not es Cardiology Blood Pressure Elevated Pt state s he was at er yesterday for cutting his hand. Pt states he was told that his bp was extremely high and was advised to see PCP. Pt states he did buy a bp machine and when he checked at home it was 162/90 Examination Category Sub-Category Detail Notes Category Not es Cardiology Lungs: clear, no rales or wheezes Heart sounds: RRR, normal S1, S2 Extremities: no leg edema, left h and in a thumb spica splint Murmur, click , gallop: none General Appearance: pleasant, NAD
--- OUTSIDE RECORDS SUMMARY | 2024-10-12 11:45 | XMS_ITS ---
Author Organization [facility] Address [address] [place] [phone] Care Team Providers Care Tradeshow Worker Name Role Phone Abran Lepe Primary Care Provider [phone] Allergies Allergen (clinical drug ingredient) Drug/Non Drug Allergy documented on EMR Reaction Allergy Type Onset Date Status amoxicillin / clavulanate Augmentin Rash Drug Allergy Active REASON FOR VISIT 3 week f/u Encounters Encounter Location Date Provider Diagnosis Brian 1210 [facility] [address] [place] [phone] 10/12/2024 Abran Lepe Plan Of Treatment No Information Progress Notes * MARCOS ROYALOB: 1 (35 yo M)Acc No.[id number]:10/12/2024 Progress Notes Patient: SANNA AGUILAR Provider: Bipin Lepe M.D. :1990 A ge:34 Y S ex:Male Date:10/12/2024 Address:[address] [id number] Subjective: * Chief Complaints: * 1 . 3 week f/u. * ROS: D ERMATOLOGY: no R les. n o H teresa. G ASTROENTEROLOGY: no N ausea. n o V omiting. U ROLOGY: no D ifficulty urinating. n o B lood in urine. * Medical History: V iral Hepatitis B at age 20. * Surgical History: D enies Past Surgical History. * Hospitalization/Major Diagno stic Procedure: L T Hand Laceration 03/2006, Shoulder Pain- [facility] ER 11/02/2013, Gastritis- [place] ER 2018. * Family History: F ather: [...] , Determination:, occasional. Sexually active: yes. * Allergies: A ugmentin: Rash. Objective: * Vitals: Assessment: Plan: * Treatment: * Images: Billing Information: * Visit Code: * Procedure Codes: * Electronic signature of Mariel Lepe MD on 08/10/2025 at 04:39 AM EDT Sign off status: Pending * Provider: Bipin Lepe M.D. Date: 12/13/2023 Generated for Juan mckeon/Randy/Mahendra on: 04:39 AM EDT
--- OUTSIDE RECORDS SUMMARY | 2024-12-21 07:45 | XMS_ITS ---
Author Organization [facility] Address 1210 [facility] [address] [place] [phone] Care Team Providers Care Automotive Sales Representative Name Role Phone Abran Lepe Primary Care Provider Allergies Allergen (clinical drug ingredient) Drug/Non Drug Allergy documented on EMR Reaction Allergy Type Onset Date Status amoxicillin / clavulanate Augmentin Rash Drug Allergy Active REASON FOR VISIT cough, fever Encounters Encounter Location Date Provider Diagnosis Brian 1210 [facility] [address] [place] [phone] 12/21/2024 Abran Lepe Plan Of Treatment No Information Progress Notes * MARCOS ROYALOB: 1 (35 yo M)Acc No.[id number]:12/21/2024 Progress Notes Patient: SANNA AGUILAR Provider: Bipin Lepe M.D. :1990 A ge:34 Y S ex:Male Date:12/21/2024 Address:[id number] Subjective: * Chief Complaints: * 1 . Cough, fever. * HPI: E NT/respiratory: 34 year old male presents with c/o cough. * ROS: D ERMATOLOGY: no R les. n o H teresa. G ASTROENTEROLOGY: no N ausea. n o V omiting. U ROLOGY: no D ifficulty urinating. n o B lood in urine. * Medical History: V iral Hepatitis B at age 20. * Surgical History: D enies Past Surgical History. * Hospitalization/Major Diagno stic Procedure: L T Hand Laceration 03/2006, Shoulder Pain- [facility] ER 11/02/2013, Gastritis- [place] ER 2018. * Family History: F ather: [...] * Provider: Bipin Lepe M.D. Date: 0 12/21/2024 Generated for Juan mckeon/Randy/Mahendra on: 04:39 AM EDT History and Physical Notes * HPI (History of Present Illness) Category Sub-Category Detail Notes Category Not es ENT/respiratory cough
[2025-08-10 04:23] VITALS: BP 153/86; PULSE 76; RESP 20; TEMP 36.7; O2SAT 98; BMI 32.5
--- NOTE | 2025-08-10 04:34 | ED_ITS ---
Discharge Plan Disposition Patient Disposition: Home, Self-Care Prescriptions Prescriptions: No Action cefadroxil 500 mg capsule 500 mg PO BID 10 Days Qty: 20 0RF oxycodone 5 mg tablet 5 mg PO Q8H PRN (Reason: pain) Qty: 12 0RF mqtykhuywa-zwqrwirvatkqa-ctii 1 EACH tablet 1 each PO BID Qty: 10 0RF cephalexin 500 mg capsule 500 mg PO TID 5 Days Qty: 15 0RF Activity Restrictions/Add. Instructions Additional Instructions/Restrictions: Please follow-up with your primary care provider. Please return to the emergency department if you develop any new or worsening symptoms or become concerned for your health. Clinical Impressions Clinical Impression: Irritation of eye Print Language Print Language: Prydein[place] Discharge ED Provider: Bryn German Adult HPI General Chief complaint: Eye Problems Stated complaint: metal in eye Time Seen by Provider: 08/10/25 04:20 Mode of Arrival: Ambulatory Source of Information: Patient Description of Symptoms (Recalled from ER Triage Doc. by RN): metal piece in right eye after using meat grinder History of Present Illness HPI narrative: 35-year-old male without significant past medical history presents with right eye irritation. He reports that he was using a white metal corrosion proofer few hours ago when he felt something go into his eye. He thought he saw a piece of metal in his eye and has been trying to get it out for the last couple of hours. He used water and a Q-tip but was unsuccessful. On the way here about 10 minutes prior to arrival he felt some improvement after his eyes were watering. Denies any vision changes. Related Data Previous Rx's ?Medication ?Instructions ?Recorded pkujxpvqnl-dkliliwkfacgb-whovuybj 1 each PO BID #10 ta bs 04/19/21 50 mg-325 mg-40 mg tablet cephalexin 500 mg capsule 500 mg PO TID 5 days #15 cap s 04/11/24 cefadroxil 500 mg capsule 500 mg PO BID 10 days #20 ca ps 09/05/24 oxycodone 5 mg tablet 5 mg PO Q8H PRN pain #12 tab s 09/06/24 Allergies Allergy/AdvReac Type Severity Reaction Status Date / Time Penicillins (PENICILLINS) Allergy Mild Verified 01/23/19 00:22 [facility] Disclaimer: The information contained in this section may have been updated after the patient was seen, as this information can be updated by other users. Social History Smoking Status: Current every day smoker alcohol intake: current alcohol intake frequency: 3 or more drinks per day substance use type: marijuana current occupational status: unemployed Travel in the last 8 weeks?: None Other Medical History Have you received the Flu Vaccine for this season: No Have you received the Pneumonia Vaccine: No ROS Obtained: Yes All systems reviewed & no additional complaints except as documented Physical Exam General General appearance: alert and in no apparent distress Head Head exam: atraumatic and normocephalic Eye Eye exam: Present normal appearance, PERRL, EOMI and other (No significant conjunctival injection, no obvious foreign body. Faint fluorescein uptake lateral to the right cornea) ENT ENT exam: Present normal oropharynx and normal external ear exam Neck Neck exam: Present normal inspection and full ROM Chest Chest inspection: Present normal inspection and symmetric chest wall rise; Absent tenderness Respiratory Respiratory exam: Present normal lung sounds bilaterally; Absent respiratory distress Cardiovascular Cardiovascular exam: Present regular rate and normal rhythm Abdominal Exam Abdominal exam: Present soft; Absent distention, tenderness or guarding Extremities Exam Extremities exam: Present normal inspection; Absent edema or joint swelling Back Exam Back exam: Present normal inspection; Absent tenderness Neurological Exam Neurological exam: Present alert and oriented X3; Absent motor sensory deficit Psychiatric Psychiatric exam: Present normal affect and normal mood Skin Skin exam: Present warm, dry and normal color Lymphatic Lymphatic Findings: no adenopathy Medical Decision Making Medical Records Medical records reviewed: Yes I reviewed the patient's medical records. Screening: Per USPSTF and CDC recommendations, given the prevalence of disease in our region, it is our hospital?s policy to screen for HIV and viral Hepatitis for all patients aged 18 and over and those with ongoing risk factors. Carlos Alberto Inquiry Pt receiving controlled substance: No Carlos Alberto was queried for this patient: No Vital Signs: 08/10/25 04:23 08/10/25 04:38 Temperature 98.0 F 98.0 F Temperature Source Oral Oral Pulse Rate 76 Pulse Rate [Right Radial] 76 Respiratory Rate 20 20 Blood Pressure 150/80 H Blood Pressure [Right Arm] 153/86 H Blood Pressure Mean [Right Arm] 108 Blood Pressure Source Automatic Cuff Blood Pressure Source [Right Arm] Automatic Cuff Blood Pressure Position Sitting Blood Pressure Position [Right Arm] Sitting 02 Sat by Pulse Oximetry 98 Oxygen Delivery Method Room Air Room Air Lab Data Lab results reviewed: Yes I reviewed the patient's lab results. Orders (Tests/Meds): ED MEDICATIONS Discontinued Medications Generic Name Dose Route Start Last Admin Trade Name [place] PRN Reason Stop Dose Admin Erythromycin 1 gm 08/10/25 04:34 Erythromycin Base 1 Gm Oint...G. OP 08/10/25 04:35 ONCE ONE Fluorescein Sodium 1 mg 08/10/25 04:34 Fluorescein Sodium 1mg Strip OP 08/10/25 04:35 ONCE ONE Tetracaine HCl 0 ml 08/10/25 04:34 Tetracaine 0.5% Opth Orin 15ml OP 08/10/25 04:35 ONCE ONE ORDERS Category Date Time Status HIV Combo Stat Lab 08/10/25 04:26 Ordered Hepatitis C Ab Qual. W/ RFX Stat Lab 08/10/25 04:26 Ordered Medical Decision Narrative: 35-year-old male without significant past medical history presents with concern for right eye foreign body.. History was obtained via interactive discussion with patient. On arrival, patient is [afebrile, hemodynamically stable, satting appropriately, alert, oriented x4, GCS 15], moving all extremities spontaneously. Full physical exam performed and significant for no obvious foreign body on exam, no significant conjunctival injection. No corneal abrasion. There is a tiny amount of fluorescein uptake lateral to the right cornea. Patient reports that the piece of metal was moving around earlier and he felt a little better about 10 minutes prior to arrival. He likely flushed it out on his own. He was discharged with erythromycin ointment. Return precautions given. Procedures Risk/Benefits of Procedure(s) Were Explained: Yes Critical Care Critical Care Time Critical Care Time: No
[2025-08-10 04:38] VITALS: BP 150/80; PULSE 76; RESP 20; TEMP 36.7; O2SAT 98
--- OUTSIDE RECORDS SUMMARY | 2025-08-10 04:39 | XMS_ITS | Clinical Summary ---
Author Organization [facility] Address [address] [phone] Care Team Providers Care Pipe Manufacture Supervisor Name Role Phone Alvin Cheema MD Primary Care Provider Allergies Active Allergy Reactions Criticality Noted Date Comments Penicillins Unknown - Patient st ates they do not know rxn details Low 01/23/2019 Medications oxyCODONE (Roxicodone) 5 MG immediate release tablet Take 1 tablet (5 mg) by mouth every 8 (eight) hours if needed. 09/06/2024 Active cefadroxil (Duricef) 500 MG capsule Take 1 capsule (500 mg) by mouth 2 (two) times a day. Active Active Problems Problem Noted Date Diagnosed Date Laceration of hand involving extensor tendon Social History Tobacco Use Types Packs/Day Years Used Date Smoking Tobacco: Every Day Cigarettes Smokeless Tobacco: Never Tobacco Cessation:Ready to Q uit: Not Asked; Counseling Given: Not Answered Alcohol Use Standard Drinks/Week Comments Yes 1 (1 standard drink = 0.6 oz pur e alcohol) PHQ-2 Answer Date Recorded Patient Health Questionnaire-2 Score 0 09/15/2024 Sex and Gender Information Value Date Recorded Sex Assigned at Not on file Legal Sex Male 6:33 PM EDT Gender Identity Not on file Sexual Orientation Not on file Last Filed Vital Signs Vital Sign Reading Time Taken Comments Blood Pressure 152/82 09/15/2024 10:17 AM EST Pulse 75 09/15/2024 10:17 AM EST Temperature 36.9 C (98.4 F) 09/05/2024 10:15 PM EDT Respiratory Rate 20 09/05/2024 10:15 PM EDT Oxygen Saturation 99% 09/15/2024 10:17 AM EST Inhaled Oxygen Concentration - - Weight 113 kg (250 lb) 09/15/2024 10:17 AM EST Height 188 cm (6' 2 ) 09/15/2024 10:17 AM EST Body Mass Index 32.1 09/15/2024 10:17 AM EST Plan of Treatment Health Maintenance Due Date Last Done Comments [facility]-HIV Screening 1991 [facility]-Hepatitis C Screening 1991 [facility]-Infant/Child/Adol SDOH Screenings 1991 [facility]-Varicella Vaccines (1 of 2 - 13+ 2-dose series) 2004 [facility]- SDOH Screenings 2009 [facility]-Adult SDOH Screenings 2009 [facility]-Hepatitis B Vaccines (1 of 3 - 19+ 3-dose series) 2010 [facility]-Pneumococcal Vaccine: Pediatrics (0 to 5 Years) and At-Risk Patients (6 to 49 Years) (1 of 2 - PCV) 2010 HPV Vaccines (1 - 3-dose SCDM series) 2018 [facility]-MTDBU-69 Vaccine ( - season) 2025 [facility]-Influenza Vaccine (#1) 2025 [facility]-Depression Screening 09/15/2025 09/15/2024 [facility]-DTaP,Tdap,and Td Vaccines (7 - Td or Tdap) 01/23/2029 01/23/2019, 06/26/1995, 11/23/1992, Additional history exists [facility]-Zoster Vaccines (1 of 2) 2041 [facility]-HIB Vaccines Completed 11/23/1992, , 1991, Additional history exists [facility]-IPV Vaccines Aged Out 06/26/1995, , 1991, Additional history exists No longer eligible based on patient's age to complete this topic [facility]-Obesity Intervention Completed 024, 09/08/2024, 09/08/2024 [facility]-Hepatitis A Vaccines Aged Out No longer eligible based on patient's age to complete this topic [facility]-Rotavirus Vaccines Aged Out No lo nger eligible based on patient's age to complete this topic Insurance [facility] [facility] MEDICAID Care Teams Pipe Manufacture Supervisor Relationship Specialty Start Date End Date Alvin Cheema MD [address] [place] [id number] PCP - General 03/22/21
--- OUTSIDE RECORDS SUMMARY | 2025-08-10 04:39 | XMS_ITS | Patient Health Record ---
[facility] [address] [place] [phone] Care Team Providers Care Follow Up Specialist Name Role Phone Abran Lepe Primary Care Provider Pily Cherry Unavailable [phone] Allergies Allergen (clinical drug ingredient) Drug/Non Drug [...] - 38 plat 154 100 - 400 Immunizations Vaccine Route Administration Date Status Comme nts Tetanus Tdap-Adacel (over 7yrs) Unknown 01/23/2019 Admi nistered MMR Unknown 11/23/1992 Administered Problems Problem Type SNOMED Code ICD Code Onset Dates Problem Status W/U Status Risk Notes Problem Viral hepatitis B without hepatic coma (902174371) Viral hepatitis B, w/o mention of coma, w/o mention of hepatitis delta (070.30) Active confirmed Problem Right upper quadrant pain (039767095) Abdominal pain, right upper quadrant (789.01) Active confirmed Problem Mood disorder (40246253) Mood disorder (F39) Active confirmed Problem Contusion of chest (11729563) Chest wall contusion, right, initial encounter (S20.211A) Active confirmed Vital Signs Heart Rate 84 /min 09/09/2024 Blood pressure diastolic 80 mm Hg 09/09/2024 Height 73 in 09/09/2024 Blood pressure systolic 132 mm Hg 09/09/2024 Weight 250.2 lbs 09/09/2024 BMI 33.01 kg/m2 09/09/2024 Encounters Encounter Location Date Provider Diagnosis [facility] [address] [place] [id number] 08/15/2024 Pily Cherry URI (upper respirato ry infection) J06.9 [facility] [address] [place] [phone] 09/09/2024 Abran Lepe Elevated blood pressure reading R03.0 Assessments Encounter Date Diagnosis (ICD Code) Assessment Notes Treatment Notes Treatment Clinical Notes Section Notes 08/15/2024 URI (upper respiratory infection) (ICD-10 - J06.9) fluids, rest, supportive measures for fever/symptom relief, gargles q2h while awake with hot salt water; declines FLU and COVID TESTS 09/09/2024 Elevated blood pressure reading (ICD-10 - R03.0) Blood pressure journal Plan Of Treatment No Information Insurance Providers Payer Name Payer Address Payer Phone Subscriber Number Group Number Insured Name Patient Relationship to Insured Coverage Start Date Coverage End Date [employer] [facility] [id number] [place], [place] [phone] [id number] SANNA ROMERO Self - patient is the insured Medications Administered Medication Instructions Date of Administration Dosage Notes Dexamethasone 04/13/2006 4 mg Medical (General) History Medical History History ICD Code Viral Hepatitis B at age 20 Surgical History Surgery Date(Month/Year) Hospitalization History Reason Date(Month/Year) LT Hand Laceration 03/2006 Shoulder Pain- [facility] ER 11/02/2013 Gastritis- [place] [facility] 2018
== END 2025-08-10 04:42 | disposition home or self-care (01) ==
LOC: ER 04:37
PROVIDERS: Emergency Provider Emergency Medicine
DX: H53.141 Visual discomfort, right eye (principal)
CPT/HCPCS: 99283